=== PATIENT | male | born 1985 | race Two or more races ===

== ENCOUNTER 2018-04-21 10:20 | Emergency (ER) | payer MEDICAID ==
[~2018-04-21] VITALS: Ht 170.2 cm; Wt 86.2 kg
--- NOTE | 2018-04-21 10:26 | Emergency Room Report ---
History of Present Illness General Chief Complaint: Suicidal Source: Patient, EMS Present Illness HPI Patient is a 33-year-old male who presented after increased agitation and the reported suicidal thoughts. The patient had reportedly been placed on 5150 by [employer]. The patient was recently on a 5150 hold approximately 3 days ago. The patient subsequently was released from the hospital. Reportedly patient wanted to be killed by [employer]. The patient was noted to be increasingly agitated at home and was throwing things in the house per EMS. EMS was called by family members Allergies: Coded Allergies: No Known Allergies (Unverified , 04/21/18) Patient History Reviewed Nursing Documentation: PMH: Agreed; PSxH: Agreed Review of Systems All Other Systems: negative except mentioned in HPI Physical Exam Vital Signs Date Time Temp Pulse Resp B/P (MAP) Pulse Ox O2 Delivery O2 Flow Rate FiO2 04/21/18 10:13 98.9 100 18 140/90 100 Room Air 99.0 Sp02 EP Interpretation: reviewed, normal General Appearance: alert/responsive, no apparent distress, GCS 15, non-toxic Head: atraumatic Eyes: PERRL, lids + conjunctiva normal ENT: hearing intact, no angioedema Neck: supple/symm/no masses, no meningismus Respiratory: effort normal, no wheezing, chest symmetrical Cardiovascular: regular rate, rhythm, no edema Cardiovascular #2: 2+ carotid (R), 2+ carotid (L), 2+ dorsalis pedis (R), 2+ dorsalis pedis (L) Gastrointestinal: non-tender, no mass, non-distended, no rebound/guarding, normal bowel sounds Musculoskeletal: gait & station normal, strength & tone normal, normal ROM, non -tender Neurologic: normal inspection, oriented x3, sensory intact, normal speech Skin: no rash, well hydrated Lymphatic: normal inspection Medical Decision Making Diagnostic Impression: Primary Impression: Substance abuse ER Course Patient presented for psychiatric evaluation. Differential diagnoses include substance abuse, psychosis, bipolar disorder, depression, malingeringBecause of complexity of patient's case laboratory testing and imaging studies were ordered.The patient was noted to have been placed on a 5150 hold by [employer].The patient appears to have somewhat pressured speech. The patient was seen by Dr. Wang for psychiatric evaluation. The patient's symptoms appear to be drug induced and the patient noted have improvement prior to discharge. At the time of discharge patient denies any suicidal thoughts. He denies any thoughts of harming others. The patient states he has a job interview which he wants to attend. Patient was advised outpatient mental health follow-up. Patient was advised to return if any worsening of condition or recurrent suicidal thoughts or thoughts of harming others. Labs Test 04/21/18 10:56 04/21/18 12:00 White Blood Count 7.8 K/UL (4.8-10.8) Red Blood Count 5.60 M/UL (4.70-6.10) Hemoglobin 19.2 G/DL (14.2-18.0) Hematocrit 52.4 % (42.0-52.0) Mean Corpuscular Volume 94 FL (80-99) Mean Corpuscular Hemoglobin 34.3 PG (27.0-31.0) Mean Corpuscular Hemoglobin Concent 36.6 G/DL (32.0-36.0) Red Cell Distribution Width 11.8 % (11.6-14.8) Platelet Count 274 K/UL (150-450) Mean Platelet Volume 6.8 FL (6.5-10.1) Neutrophils (%) (Auto) 64.9 % (45.0-75.0) Lymphocytes (%) (Auto) 24.2 % (20.0-45.0) Monocytes (%) (Auto) 9.4 % (1.0-10.0) Eosinophils (%) (Auto) 0.3 % (0.0-3.0) Basophils (%) (Auto) 1.3 % (0.0-2.0) Sodium Level 141 MMOL/L (136-145) Potassium Level 3.4 MMOL/L (3.5-5.1) Chloride Level 106 MMOL/L (98-107) Carbon Dioxide Level 21 MMOL/L (21-32) Anion Gap 14 mmol/L (5-15) Blood Urea Nitrogen 11 mg/dL (7-18) Creatinine 1.1 MG/DL (0.55-1.30) Estimat Glomerular Filtration Rate > 60 mL/min (>60) Glucose Level 115 MG/DL (74-106) Calcium Level 9.0 MG/DL (8.5-10.1) Total Bilirubin 1.4 MG/DL (0.2-1.0) Direct Bilirubin 0.2 MG/DL (0.0-0.3) Aspartate Amino Transf (AST/SGOT) 29 U/L (15-37) Alanine Aminotransferase (ALT/SGPT) 51 U/L (12-78) Alkaline Phosphatase 105 U/L (46-116) Total Protein 7.5 G/DL (6.4-8.2) Albumin 4.0 G/DL (3.4-5.0) Globulin 3.5 g/dL Albumin/Globulin Ratio 1.1 (1.0-2.7) Salicylates Level < 0.2 ug/mL (2.8-20) Acetaminophen Level < 2 MCG/ML (10-30) Serum Alcohol 28 mg/dL Urine Opiates Screen Negative (NEGATIVE) Urine Barbiturates Screen Negative (NEGATIVE) Phencyclidine (PCP) Screen Negative (NEGATIVE) Urine Amphetamines Screen Positive (NEGATIVE) Urine Benzodiazepines Screen Negative (NEGATIVE) Urine Cocaine Screen Positive (NEGATIVE) Urine Marijuana (THC) Screen Negative (NEGATIVE) Last Vital Signs Date Time Temp Pulse Resp B/P (MAP) Pulse Ox O2 Delivery O2 Flow Rate FiO2 04/21/18 10:13 98.9 100 18 140/90 100 Room Air 99.0 Status: improved Disposition: HOME, SELF-CARE Condition: Stable Scripts No Active Prescriptions or Reported Meds Perico Nichole MD Apr 21, 2018 10:26
[2018-04-21 11:25] VITALS: BP 112/73
[2018-04-21 11:30] LABS: BASOPHILS % (AUTO) 1.3 % (0.0-2.0); EOSINOPHILS % (AUTO) 0.3 % (0.0-3.0); HEMATOCRIT 52.4 % (42.0-52.0); LYMPHOCYTES % (AUTO) 24.2 % (20.0-45.0); MEAN CORPUSCULAR VOLUME 94 FL (80-99); MONOCYTES % (AUTO) 9.4 % (1.0-10.0); NEUTROPHILS % (AUTO) 64.9 % (45.0-75.0); PLATELET COUNT 274 K/UL (150-450); RED CELL DISTRIBUTION WIDTH 11.8 % (11.6-14.8); WHITE BLOOD COUNT 7.8 K/UL (4.8-10.8)
[2018-04-21 11:33] LABS: ANION GAP 14 mmol/L (5-15); BLOOD UREA NITROGEN 11 mg/dL (7-18); CARBON DIOXIDE 21 MMOL/L (21-32); CHLORIDE 106 MMOL/L (98-107); CREATININE 1.1 MG/DL (0.55-1.30); POTASSIUM 3.4 MMOL/L (3.5-5.1); SODIUM 141 MMOL/L (136-145)
[2018-04-21 11:42] LABS: ALANINE AMINOTRANSFERASE 51 U/L (12-78); ALBUMIN/GLOBULIN RATIO 1.1 (1.0-2.7); ALKALINE PHOSPHATASE 105 U/L (46-116); ASPARTATE AMINO TRANSFERASE 29 U/L (15-37); BILIRUBIN,TOTAL 1.4 MG/DL (0.2-1.0)
[2018-04-21 11:43] LABS: BILIRUBIN,DIRECT 0.2 MG/DL (0.0-0.3)
[2018-04-21 11:50] LABS: HEMOGLOBIN 19.2 G/DL (14.2-18.0)
[2018-04-21 14:26] VITALS: BP 112/73
--- NOTE | 2018-04-22 03:15 | Consultation ---
DATE OF CONSULTATION: 04/21/2018 CONSULTING PHYSICIAN: Brennan Wang M.D. HISTORY OF PRESENT ILLNESS: The patient is a 33-year-old male with a history of substance use disorder mainly cocaine and crystal meth, who has been admitted to the hospital and questioned, brought into the emergency room on a 5150 after [employer] placing for a danger to self and others. The patient stated that he his girlfriend got and carrying his baby was found out. The patient is very distraught and is unable to cope with the stressor in his life, therefore he is using drugs. He has good insight and judgment into his current situation. He denied any suicidal or homicidal ideation and stated that he has no history of psychiatric hospitalization. No suicide attempts in the past. He is not taking any psychotropic medications. Apparently, he got into a fight with his family and he also has been recently taken to the emergency room in similar situation. He stated that he used drugs three days ago. His system was positive for cocaine and crystal meth. PAST PSYCHIATRIC HISTORY: He denies seeing a psychiatrist or neurotherapist. He is not taking any psychotropic medications. PAST MEDICAL HISTORY: Nonsignificant. ALLERGIES: No known drug allergies. SUBSTANCE ABUSE HISTORY: As I mentioned, significant for crystal meth, cocaine, and marijuana in the past. SOCIAL HISTORY: The patient is in a relationship, apparently the girlfriend is . MENTAL STATUS EXAMINATION: The patient is alert and oriented to time, self, place, and situation he is in. His mood is neutral. Affect is constricted, congruent with mood. Thought process is concrete. Thought content, no suicidal or homicidal ideations. No delusions. No auditory or visual hallucinations. Insight and judgment are fair. ASSESSMENT: [place] I 1. Substance use disorder. 2. Adjustment disorder. [place] II Deferred. [place] III As above. [place] IV Moderate. [place] V Global assessment of functioning is 50. PLAN: 1. We will discontinue 5150 as the patient is not an imminent danger to self or others. 2. The patient will be given a referral to substance use disorder program. 3. The patient was reluctant to receive any psychotropic medication. Brennan Wang M.D. DR: KIM JOB#: [id number] CC:
== END 2018-04-21 14:27 | disposition home or self-care (01) ==
LOC: EDBD 10:20 → EMR 10:47
DX: F15.10 Other stimulant abuse, uncomplicated (principal)
CPT/HCPCS: 36415; 80053; 80307; 80329; 82248; 82962; 85025; 99283